=== PATIENT | female | born 1985 ===

== ENCOUNTER 2017-03-04 10:50 | Emergency (ER) | payer MEDICAID, SELFPAY ==
[2017-03-04 11:13] VITALS: BMI 26.9
--- NOTE | 2017-03-04 13:46 | OBHP ---
Datetime: 03/04/2017 13:42 IP Adm Impression: , intrauterine ; No Active Labor IP Admit Plan: Observation/Evaluation Admit Comment, IP Provider: The patient's 31-year-old 2 para 1 to maybe due date 04/11/2017 estimated gestational age 35 weeks patient presents to [facility] complaining of pr uritus 3 weeks' duration. Patient describes it as this is generalized patient denies any skin rashe s. Patient reports good movement no vaginal bleeding no leakage of fluid. Past medical history none Past surgical history none Social history patient denies alcohol tobacco use No known drug allergies Obstetrical history one previous spontaneous normal vaginal delivery care this her eyes [facility] Review of systems patient denies headache blurred vision chest pain shortness of breath palpitatio ns nausea vomiting diarrhea dysuria. Cold intolerance she presented ability musculoskeletal or neurol ogical complaints Vital signs stable afebrile Physical exam see notes Intrauterine at 35 weeks generalized pruritus no skin rash CBC complete metabolic ordered External monitor with observation Reviewed records from [facility] Patient advised to use lotion twice a day for dry skin Zyrtec as needed Follow-up PMD Pelvic Type - PN: Adequate Extremities - PN: Normal Abdomen - PN: Normal Back - PN: Not Done Breast - PN: Not Done Lungs - PN: Normal Heart - PN: Normal Thyroid - PN: Normal Neurologic - PN: Normal HEENT - PN: Normal General - PN: Normal Gestation - Est Wks by US: 35.0 Vital Signs Provider: Reviewed IP Chief Complaint: Maternal discomfort NICHD Decel Fetus A IP Provider: None Genitourinary Exam: Not Done DTRs - PN: Normal
[2017-03-04 14:38] LABS: BASO # 0.1 K/uL (0.0-0.2); BASO % 0.7 % (0.0-2.0); EOS % 0.4 % (0.0-4.0); HEMATOCRIT 34.5 % (34.0-47.0); LYMPH % 17.4 % (20.0-40.0); MEAN CELL VOLUME 92.4 fl (81.0-99.0); MEAN CORPUSCULAR HEMOGLOBIN 30.5 pg (27.0-31.0); MEAN PLATELET VOLUME 9.4 fl (7.2-11.7); MONO # 0.6 K/uL (0.0-0.8); MONO % 5.3 % (0.0-10.0); NEUT # 8.9 K/uL (1.8-7.0); NEUT % 76.2 % (50.0-75.0); NRBC % 0.1 % (0.0-0.0); RED CELL DISTRIBUTION WIDTH 14.1 % (11.5-14.5); WHITE BLOOD COUNT 11.6 K/uL (4.8-10.8)
[2017-03-04 15:35] LABS: ALB/GLOB RATIO 1.1 (1.0-2.1); ALKALINE PHOSPHATASE 307 U/L (38-126); ALT/SGPT 154 U/L (9-52); AST/SGOT 59 U/L (14-36); BILIRUBIN,TOTAL 0.8 mg/dl (0.2-1.3); BLOOD UREA NITROGEN 8 mg/dl (7-17); CALCIUM 8.7 mg/dL (8.4-10.2); CARBON DIOXIDE 20 mmol/L (22-30); CHLORIDE 107 mmol/L (98-107); GFR AFRICAN-AMERICAN > 60; GLUCOSE,RANDOM 107 mg/dL (65-105); POTASSIUM 3.5 MMOL/L (3.6-5.0); SODIUM 137 mmol/l (132-148); TOTAL PROTEIN 6.8 G/DL (6.3-8.2)
[2017-03-04 21:43] VITALS: BP 98/56; PULSE 67; RESP 20; TEMP 98.4; O2SAT 100
[2017-03-08 22:47] LABS: CHENODEOXYCHOLIC ACID 14.1 umol/L (< OR = 3.9); CHOLIC ACID 22.1 umol/L (< OR = 2.8); DEOXYCHOLIC ACID <1.0 umol/L (< OR = 2.3)
== END 2017-03-04 16:20 | disposition home or self-care (01) ==
LOC: H.EROB2 10:50 → H.EROB 11:46 → H.EROB2 16:20
DX: O47.03 False labor before 37 completed weeks of gestation, third trimester (principal); Z3A.35 35 weeks gestation of pregnancy; O26.93 Pregnancy related conditions, unspecified, third trimester; L29.9 Pruritus, unspecified

== ENCOUNTER 2017-04-02 13:41 | Emergency (ER) | payer MEDICAID ==
[2017-04-02 15:04] VITALS: BMI 27.3
--- NOTE | 2017-04-02 16:44 | OBHP ---
Datetime: 04/02/2017 15:05 IP Adm Impression: Term, intrauterine ; No Active Labor; Intact Membranes IP Admit Plan: Observation/Evaluation; Discharge home Admit Comment, IP Provider: 31 y/o Female, , IUP@38.6 GA confirmed by U/S, comes to the [facility] c/o discomfort and pain since last 24 hours. Pt admits pain which comes and goes every 2 hours and so. N o LOF/BV or CTX, +FM, just mild white discharge. pt denies any fever, chills, nausea, vomiting or dys pnea. PNC: Jacob Severino PNI: No issues with this so far PNL:GBS+, RPR,HIV,Ch/GC negative PMH: Anemia PSH: none Allg: none Meds: PNV and Iron BID OBGYN: one at term SH: denies alcohol, smoking and drug use FH: none VS: stable FHR: 135 PE: Unremarkable, No CTX 1 cm dil U/S: Cephalic presentation A/P: 31 y/o Female, , IUP@38.6 GA confirmed by U/S, comes to the [facility] c/o discomfort and pain since last 24 hours. No labor - Monitor VS and FHT - D/c home Case discussed with Dr. Chen --- Alice Banks, PGY1 OB Hospitalist note: Pt seen and examined by me. Agree with PGY1 note MAHNDO Pelvic Type - PN: Adequate Extremities - PN: Normal Abdomen - PN: Normal Back - PN: Normal Breast - PN: Not Done Lungs - PN: Normal Heart - PN: Normal Thyroid - PN: Normal Neurologic - PN: Normal HEENT - PN: Normal General - PN: Normal IP Fetus A Comments: Sono cephalic FHR - Baseline A Provider: 135 Membranes, Provider: Intact Comments, ACOG Physical Exam: U/S: Cephalic presentation GBS+ RPR,HIV,Ch/GC negative Pool Provider: Negative IP Hx Assessment: The History has been Reviewed and is Current Vital Signs Provider: Reviewed IP Chief Complaint: Maternal discomfort; evaluation NICHD Variability Prov Fetus A: Moderate 6-25bpm NICHD Accel Fetus A IP Provider: 15X15 FHR Category Provider Fetus A: Category I NICHD Decel Fetus A IP Provider: None Dilatation, Provider: 1 Effacement, Provider: Thick Station, Provider: high Genitourinary Exam: Normal DTRs - PN: Not Done
[2017-04-02 19:53] VITALS: BP 106/73; PULSE 66; RESP 18; TEMP 98.4; O2SAT 99
== END 2017-04-02 15:00 | disposition home or self-care (01) ==
LOC: H.EROB2 13:41
DX: O26.93 Pregnancy related conditions, unspecified, third trimester (principal); R10.2 Pelvic and perineal pain; O47.1 False labor at or after 37 completed weeks of gestation; Z3A.38 38 weeks gestation of pregnancy

== ENCOUNTER 2017-04-07 10:53 | Inpatient (IN) | payer MEDICAID ==
[2017-04-07 13:28] VITALS: BMI 28.3
[2017-04-07] MEDS ORDERED: Penicillin G Potassium 5 MU in Sodium Chloride 0.9% 50 ML IVPB ONE ×2 (13:44→15:26)
[2017-04-07] MEDS ORDERED: Lactated Ringer's 1,000 ML IV SCH ×2 (13:45→15:30)
[2017-04-07 14:36] LABS: BASO # 0.1 K/uL (0.0-0.2); EOS # 0.1 K/uL (0.0-0.7); EOS % 0.7 % (0.0-4.0); HEMATOCRIT 36.7 % (34.0-47.0); LYMPH # 2.5 K/uL (1.0-4.3); LYMPH % 25.3 % (20.0-40.0); MEAN CELL VOLUME 92.5 fl (81.0-99.0); MEAN CORPUSCULAR HEMOGLOBIN 30.7 pg (27.0-31.0); MEAN CORPUSCULAR HGB CONC 33.2 g/dL (33.0-37.0); MEAN PLATELET VOLUME 10.2 fl (7.2-11.7); MONO # 0.5 K/uL (0.0-0.8); MONO % 4.9 % (0.0-10.0); NEUT # 6.6 K/uL (1.8-7.0); NEUT % 68.1 % (50.0-75.0); RED CELL DISTRIBUTION WIDTH 14.9 % (11.5-14.5); WHITE BLOOD COUNT 9.7 K/uL (4.8-10.8)
--- NOTE | 2017-04-07 15:24 | OBADHP ---
Datetime: 04/07/2017 15:05 Admit Comment, IP Provider: 31 y/o Female, , IUP@38.6 GA by11 wk U/S, comes to the [facility] c/o dec reased movement. Denies vaginal bleeding or rupture of membranes or contractions. pt denies any fever, chills, nausea, vomiting or dyspnea. care sig for Cholestasis of . PNC: Jacob Severino at [facility] PNL:GBS+, RPR,HIV,Ch/GC negative PMH: Anemia PSH: none Allg: none Meds: PNV and Iron BID; ursodiol OBGYN: one at term SH: denies alcohol, smoking and drug use FH: none VS: stable A: 39.2wks Cholestasis of Preg GBS+ P:Admit to LD Pelvic Type - PN: Adequate Extremities - PN: Normal Abdomen - PN: Normal Lungs - PN: Normal Heart - PN: Normal Neurologic - PN: Normal HEENT - PN: Normal General - PN: Normal Presentation-Admit: Vertex FHR - Baseline A Provider: 130 Membranes, Provider: Intact Contraction Comments Provider: irreg Vital Signs Provider: Within Normal Limits IP Chief Complaint: Decreased movement NICHD Variability Prov Fetus A: Moderate 6-25bpm NICHD Accel Fetus A IP Provider: 15X15 FHR Category Provider Fetus A: Category I NICHD Decel Fetus A IP Provider: None Dilatation, Provider: 2 Effacement, Provider: 80 Station, Provider: -1 Genitourinary Exam: Normal EGA AdmitDate IP: 39.3 IP Adm Impression: Term, intrauterine IP Admit Plan: Admit to unit; Observation/Evaluation Datetime: 04/02/2017 15:05 Back - PN: Normal Breast - PN: Not Done Thyroid - PN: Normal IP Fetus A Comments: Sono cephalic Comments, ACOG Physical Exam: U/S: Cephalic presentation GBS+ RPR,HIV,Ch/GC negative Pool Provider: Negative IP Hx Assessment: The History has been Reviewed and is Current DTRs - PN: Not Done Datetime: 03/04/2017 13:42 Gestation - Est Wks by US: 35.0
[2017-04-07 16:17] LABS: CARBON DIOXIDE 19 mmol/L (22-30); CHLORIDE 108 mmol/L (98-107); GFR AFRICAN-AMERICAN > 60; GLUCOSE,RANDOM 61 mg/dL (65-105); SODIUM 137 mmol/l (132-148)
[2017-04-07 16:27] LABS: ALB/GLOB RATIO 1.2 (1.0-2.1); ALKALINE PHOSPHATASE 386 U/L (38-126); ALT/SGPT 65 U/L (9-52); AST/SGOT 65 U/L (14-36); BILIRUBIN,TOTAL 1.4 mg/dl (0.2-1.3); BLOOD UREA NITROGEN 12 mg/dl (7-17); TOTAL PROTEIN 7.3 G/DL (6.3-8.2)
[2017-04-07 18:10] LABS: ALB/GLOB RATIO 1.2 (1.0-2.1); ALKALINE PHOSPHATASE 357 U/L (38-126); ALT/SGPT 84 U/L (9-52); AST/SGOT 61 U/L (14-36); BILIRUBIN,TOTAL 0.6 mg/dl (0.2-1.3); BLOOD UREA NITROGEN 11 mg/dl (7-17); CARBON DIOXIDE 21 mmol/L (22-30); CHLORIDE 108 mmol/L (98-107); GFR AFRICAN-AMERICAN > 60; GLUCOSE,RANDOM 84 mg/dL (65-105); POTASSIUM 3.9 MMOL/L (3.6-5.0); SODIUM 138 mmol/l (132-148); TOTAL PROTEIN 6.9 G/DL (6.3-8.2)
[2017-04-07] MEDS ORDERED: Oxytocin 30 UNITS in Sodium Chloride 0.9% 500 ML IV ONE (18:26)
[2017-04-07] MEDS: Lactated Ringer's 1,000 ML IV SCH (18:45)
[2017-04-07] MEDS ORDERED: Fentanyl/Bupivacaine HCl 250 ML EPI ONE (22:25)
[2017-04-08] MEDS: Lactated Ringer's 1,000 ML IV SCH (03:47)
[2017-04-08] MEDS ORDERED: Oxytocin 30 UNITS in Sodium Chloride 0.9% 500 ML IV ONE (04:46)
[2017-04-08] MEDS ORDERED: Lidocaine 1% Inj (20ml) ONE (05:07)
[2017-04-08] MEDS ORDERED: Oxycodone/Acetaminophen 5/325 mg Tab PO PRN (06:27)
[2017-04-08] MEDS: Benzocaine/Menthol SPRAY TOP PRN (10:33)
[2017-04-09] MEDS: Oxycodone/Acetaminophen 5/325 mg Tab PO PRN ×2 (05:34→15:09)
[2017-04-09 09:15] LABS: BASO # 0.1 K/uL (0.0-0.2); BASO % 0.5 % (0.0-2.0); EOS # 0.1 K/uL (0.0-0.7); EOS % 0.9 % (0.0-4.0); HEMATOCRIT 26.6 % (34.0-47.0); LYMPH # 2.7 K/uL (1.0-4.3); LYMPH % 23.8 % (20.0-40.0); MEAN CELL VOLUME 91.7 fl (81.0-99.0); MEAN CORPUSCULAR HGB CONC 33.9 g/dL (33.0-37.0); MEAN PLATELET VOLUME 8.9 fl (7.2-11.7); MONO # 0.4 K/uL (0.0-0.8); MONO % 3.8 % (0.0-10.0); RED CELL DISTRIBUTION WIDTH 14.9 % (11.5-14.5); WHITE BLOOD COUNT 11.3 K/uL (4.8-10.8)
[2017-04-09] MEDS: Benzocaine/Menthol SPRAY TOP PRN ×2 (09:56→13:30)
--- NOTE | 2017-04-09 10:44 | OBDS ---
DELIVERY PERSONNEL Delivery Doctor: Luke Hidalgo MD [employer] Solution Architect: [facility] Anesthesiologist: Marion Philip MD Resident: Dr. Way, PGY1 MATERNAL INFORMATION Delivery Anesthesia: Epidural Medications in Delivery: Pitocin 30 units in 500 mls/Lidocaine Estimated Blood Loss (ml): 350 Placenta Cultured: No Maternal Complications: None Provider Comments: 31 YO @ 39.4wks IUP, NVD a viable baby boy on 04/08/17 at 5:31. Baby was del ivered in a controlled setting, baby was bulb suctioned, 9/9 and weight of 4025g. Cords were cl amped and father cut the cord. Baby was placed on mothers abdomen. There was a 2nd degree midline per ineal laceration noted, and repaired. Placenta was delivered at 5:53. Mother and baby tolerated the p rocedure well. Teresita Way, PGY I ob attending addendum: placenta delivered spontaneously and intact. path: none neon remained in br with pt. LABOR SUMMARY EDC: 04/11/2017 00:00 No. Babies in Womb: 1 Attempted: No Labor Anesthesia: Epidural LABOR INFORMATION Reason for Induction: Not Applicable Onset of Labor: 04/07/2017 11:20 Complete Dilatation: 04/08/2017 04:12 Oxytocin: Augmentation Group B Beta Strep: Positive Antibiotics # of Doses: 3 Antibiotics Time of Last Dose: 0245 Steroids Given: None Reason Steroids Not Administered: Not Applicable MEMBRANES Membranes Rupture Method: Spontaneous Rupture of Membranes: 04/08/2017 04:12 Length of Rupture (hrs): 1.32 Amniotic Fluid Color: Bloody Amniotic Fluid Amount: Moderate Amniotic Fluid Odor: Normal STAGES OF LABOR Stage 1 hrs: 16 Stage 1 min: 52 Stage 2 hrs: 1 Stage 2 min: 19 Stage 3 hrs: 0 Stage 3 min: 22 Total Time in Labor hrs: 18 Total Time in Labor min: 33 VAGINAL DELIVERY Episiotomy: None Laceration Extension: Second Degree Laceration Type: Perineal Laceration Repair: Yes Laceration Repair Note: repaired with 3-0 vicryl Initial Vag Sponge Count: 15 Final Vag Sponge Count: 15 Initial Vag Sharps Count: 3 Final Vag Sharps Count: 3 Sponge Count Correct: Yes Sharps Count Correct: Yes Count Comment: MD confirmed count correct BABY A INFORMATION Delivery Date/Time: 04/08/2017 05:31 Method of Delivery: Vaginal Born in Route : No : N/A Forceps: N/A Vacuum Extraction: N/A Shoulder Dystocia : No SHOULDER DYSTOCIA BABY A Infant Delivery Date/Time: 04/08/2017 05:31 PRESENTATION/POSITION BABY A Presentation: Cephalic Cephalic Presentation: Vertex Breech Presentation: N/A PLACENTA INFORMATION BABY A Placenta Delivery Time : 04/08/2017 05:53 Placenta Method of Delivery: Spontaneous Placenta Status: Delivered SCORES BABY A Heart Rate 1 min: >100 bpm Resp Effort 1 min: Good Cry Reflex Irritability 1 min: Cough or Sneeze or Pulls Away Muscle Tone 1 min: Active Motion Color 1 min: Body [place], Extremities Blue Resuscitation Effort 1 min: N/A SCORE 1 MIN: 9 Heart Rate 5 min: >100 bpm Resp Effort 5 min: Good Cry Reflex Irritability 5 min: Cough or Sneeze or Pulls Away Muscle Tone 5 min: Active Motion Color 5 min: Body [place], Extremities Blue Resuscitation Effort 5 min: N/A SCORE 5 MIN: 9 INFORMATION BABY A Gestational Age at Delivery: 39.4 Gestational Status: Term Infant Outcome : Liveborn Condition : Stable Sex: Male IDENTIFICATION/MEDS BABY A ID Band Number: [id number] ID Band Location: Left Leg; Left Arm WEIGHT/LENGTH BABY A Birthweight (gms): 4025 Infant Weight (lb): 8 Infant Weight (oz): 14 CORD INFORMATION BABY A No. Cord Vessels: 3 Nuchal Cord : N/A Nuchal Cord Other: N/A True Knot: N/A Infant Cord pH Baby Arterial: N/A Cord pH Baby Venous: N/A Cord Blood Taken: Yes Banking/Donate Info: N/A Suction: Mouth; Nose ASSESSMENT BABY A Complications: None Physical Findings at Delivery: Within Normal Limits Infant Respirations: Appears Normal Transferred To: Remains with Mother
--- NOTE | 2017-04-09 12:50 | OBPPN ---
Datetime: 04/09/2017 06:50 PP Pain Prov: Within normal limits PP Nausea Prov: Denies PP Flatus Prov: Yes PP BM Prov: No PP Breasts Prov: Normal PP Heart Prov: Normal PP Lungs Prov: Normal PP Abdomen/Uterus Prov: Normal PP Lochia Prov: Normal PP Vulva/Perineum Prov: Normal PP CVA Tenderness Prov: Not Done PP Extremities Prov: Normal PP C/S Incision Prov: Not Applicable PP Progress Prov: Normal PP Impression Prov: Normal progression PP Plan Prov: Continue present management PP Progress Note Prov: S: pt seen and examined bedside this AM. PPD1, s/p NVD. No acute overnight ev ents. Pt states that she experienced pain this morning when she woke up, asked for a pain medication- no pain right now. Pt is eating a regular diet, and ambulating around the room without difficulties. Pt endorses some irratation in her vaginal area, but states that the spray helps. B/B feeding baby. + /- gas, BM. Denies fever, chills, headache, chest pain, dyspnea, palpitations, n/v/d/c and remains af ebrile. O: VS stable GEN: NAD Cardio: S1S2 no M/G/R Resp: vesicular breathing b/l Abdomen: Mild tenderness to palpation. BS+, Fundus is firm, at the umbilicus Neuro: AAO x 3 Ext: no edema noted, no calf tenderness Assessment/Plan: 31 YO delivered @ 39.4 wks to a baby boy via NVD on 04/08/17. Doing well PPD1. OOB with caution SCD's for DVT prophylaxis, ambulating Percocet 5/325mg 1-2 tablets po q6 for mod/sev pain Ibuprofen 600mg 1 tab Encourage and ambulation Senakot 17.2mg PO qHS Teresita Way, PGY I SITE INSPECTOR attending addendum: Patient seen and examined by me. Agree with above assessment and plan. We'll need to be discharged on Rx for iron, hemoglobin today 9 Vital Signs Provider PP: Reviewed; Within Normal Limits
[2017-04-10] MEDS: Oxycodone/Acetaminophen 5/325 mg Tab PO PRN (03:22)
--- NOTE | 2017-04-10 07:45 | OBDCSUM ---
Datetime: 04/10/2017 07:43 Discharged to, Provider: Home Follow up at, Provider: Clinic Disch Instr Activity: Normal activity; May Shower Disch Instr Diet: Regular Discharge Instructions, Provider: Routine instructions given Discharge Diagnosis, Provider: Term Delivered Discharge Time: 04/10/2017 07:43 Follow up in weeks, Provider: 6 weeks Contraception discussed, Prov: No Disch Activity Restrictions: No exercising; No lifting; No sexual activity; Nothing in vagina - Inte rcourse, tampons, douche
--- NOTE | 2017-04-10 07:45 | OBPPN ---
Datetime: 04/10/2017 07:41 PP Pain Prov: Within normal limits PP Abdomen/Uterus Prov: Normal PP Lochia Prov: Normal PP Extremities Prov: Normal PP Progress Prov: Normal PP Impression Prov: Normal progression PP Plan Prov: Discharge PP Progress Note Prov: PPD 2 s/p , doing well, breast and bottle feeding Discharge home today Vital Signs Provider PP: Reviewed; Within Normal Limits
[2017-04-10 17:49] VITALS: BP 100/60; PULSE 73; RESP 19; TEMP 98.1; O2SAT 100
== END 2017-04-10 13:00 | disposition home or self-care (01) | DRG 373 ==
LOC: H.EROB2 10:53 → H.EROB 11:14 → H.L&D 13:28 → H.EROB2 13:38 → H.OB/GYN 04-08 08:29
PROVIDERS: ADMIT Obstetrics & Gynecology; ATTEND Obstetrics & Gynecology
PROC: 4A1HXCZ Monitoring of Products of Conception, Cardiac Rate, External Approach (ICD-10-PCS; 2017-04-07)
PROC: 10E0XZZ Delivery of Products of Conception, External Approach (ICD-10-PCS; principal; 2017-04-08)
PROC: 0KQM0ZZ Repair Perineum Muscle, Open Approach (ICD-10-PCS; 2017-04-08)
DX: O36.8130 Decreased fetal movements, third trimester, not applicable or unspecified (principal); K83.1 Obstruction of bile duct; O26.62 Liver and biliary tract disorders in childbirth; O70.1 Second degree perineal laceration during delivery; O99.824 Streptococcus B carrier state complicating childbirth; Z37.0 Single live birth; Z3A.39 39 weeks gestation of pregnancy